=== PATIENT | female | born 1995 | race Caucasian/White ===

== ENCOUNTER 2017-07-08 23:21 | Inpatient (IN) | payer OTHER ==
[2017-07-08 23:56] LABS: URINE HCG POC HCG NEGATIVE (Negative)
[2017-07-09 00:10] LABS: ADD MAN DIFF? NO
[2017-07-09 00:14] LABS: BASO # 0.1 x10^3/uL (0.0-0.2); BASO % 1 % (0-3); EOS # 0.3 x10^3/uL (0.0-0.7); EOS % 2 % (0-3); HEMATOCRIT 41.2 % (36.0-47.0); HEMOGLOBIN 13.6 g/dL (12.0-15.5); LYMPH # 4.6 x10^3/uL (1.0-4.8); LYMPH % 31 % (24-48); MEAN CORPUSCULAR HEMOGLOBIN 26 pg (25-35); MEAN CORPUSCULAR HGB CONC 33 g/dL (31-37); MEAN CORPUSCULAR VOLUME 79 fL (79-100); MONO # 1.2 x10^3/uL (0.0-1.1); MONO % 8 % (0-9); NEUT # 8.4 x10^3uL (1.8-7.7); NEUT % 58 % (31-73); PLATELET COUNT 287 x10^3/uL (140-400); RED BLOOD COUNT 5.22 x10^6/uL (3.50-5.40); RED CELL DISTRIBUTION WIDTH 14.6 % (11.5-14.5); WHITE BLOOD COUNT 14.6 x10^3/uL (4.0-11.0)
[2017-07-09] MEDS: PANTOPRAZOLE IV PUSH 40 MG VIAL. IVP ×2 (00:15)
[2017-07-09] MEDS: IV NORMAL SALINE 1000ML BAG 1,000 ML IV ×6 (00:15→14:29)
[2017-07-09 00:17] LABS: BILIRUBIN,URINE SMALL (NEG); CLARITY,URINE CLOUDY; COLOR,URINE YELLOW; GLUCOSE,URINE NEGATIVE (NEG); NITRITE,URINE NEGATIVE (NEG); PH,URINE 5.5; PROTEIN,URINE NEGATIVE (NEG-TRACE); UROBILINOGEN,URINE 0.2 mg/dL (0.2 mg/dL)
[2017-07-09] MEDS: LIDO:MAALOX:DONNATAL 1:1:1 15 ML SINGLE DOSE SWSW ×2 (00:24)
[2017-07-09] MEDS: ONDANSETRON PF 4 MG/2 ML VIAL. IV ×2 (00:24)
[2017-07-09] MEDS: MORPHINE SULFATE 10 MG/ML VIAL. IV ×2 (00:26)
[2017-07-09 00:28] LABS: ANION GAP 10 (6-14); BLOOD UREA NITROGEN 9 mg/dL (7-20); BUN/CREATININE RATIO 15 (6-20); CALCIUM 9.2 mg/dL (8.5-10.1); CARBON DIOXIDE 26 mmol/L (21-32); CHLORIDE 104 mmol/L (98-107); CREATININE 0.6 mg/dL (0.6-1.0); GFR 128.8; GLUCOSE 91 mg/dL (70-99); POTASSIUM 3.9 mmol/L (3.5-5.1); SODIUM 140 mmol/L (136-145)
[2017-07-09 00:32] LABS: BACTERIA,URINE MODERATE /HPF (0-FEW); RBC,URINE 0 /HPF (0-2); SQUAMOUS EPITHELIAL CELL,UR MANY /LPF
[2017-07-09 00:33] LABS: ALBUMIN 3.7 g/dL (3.4-5.0); ALBUMIN/GLOBULIN RATIO 1.1 (1.0-1.7); ALK PHOS 109 U/L (46-116); ALT (SGPT) 31 U/L (14-59); AST (SGOT) 13 U/L (15-37); LIPASE 90 U/L (73-393); MAGNESIUM 1.9 mg/dL (1.8-2.4); TOTAL BILIRUBIN 0.2 mg/dL (0.2-1.0); TOTAL PROTEIN 7.1 g/dL (6.4-8.2)
[2017-07-09 00:47] LABS: FECAL OB PT POSITIVE (NEG); NEG OBC FOB NEG; POS OBC FOB POS
[2017-07-09] MEDS ORDERED: CONTRAST GIVEN MC ×2 (01:15)
[2017-07-09] MEDS: IOHEXOL 300 MG/ML 100ML VIAL. IV ×2 (01:46)
[2017-07-09] MEDS ORDERED: ONDANSETRON PF 4 MG/2 ML VIAL. IV ×4 (02:45→13:00)
[2017-07-09] MEDS ORDERED: cefTRIAXone SODIUM 2 GM in IV DEXTROSE 5% 100 ML IV (02:45)
[2017-07-09] MEDS: cefTRIAXone IV Push 2 GM VIAL. IVP ×2 (03:21)
[2017-07-09] MEDS: PANTOPRAZOLE 40 MG TABLET.DR. PO ×2 (11:46)
[2017-07-09] MEDS ORDERED: DOCUSATE SODIUM 100 MG CAPSULE. PO ×2 (13:00)
[2017-07-09] MEDS ORDERED: ACETAMINOPHEN 325 MG TABLET. PO ×2 (13:00)
[2017-07-09] MEDS ORDERED: MORPHINE SULFATE 2 MG/ML DISP.SYRIN. IV ×2 (13:00)
[2017-07-09] MEDS ORDERED: hydrALAZINE 20 MG/ML VIAL. IVP ×2 (13:00)
[2017-07-09] MEDS: HEPARIN PF for SUB-Q USE 5,000 UNIT/0.5 ML VIAL. SQ ×2 (14:00)
[2017-07-09] MEDS: PROPRANOLOL ER 80 MG CAP.ER.24H. PO ×2 (14:30)
[2017-07-09] MEDS: NICOTINE 21MG PATCH. TD ×2 (17:08)
[2017-07-09] MEDS: NICOTINE POLACRILEX 2MG GUM PACKAGE of 12. BC ×4 (17:08→20:50)
[2017-07-09] MEDS: metFORMIN 500 MG TABLET PO ×2 (17:08)
[2017-07-09] MEDS: FAMOTIDINE 20 MG TABLET. PO ×2 (20:44)
[2017-07-09] MEDS: LACTOBACILLUS RHAMNOSUS GG 1 CAPSULE. PO ×2 (20:44)
[2017-07-09] MEDS: traZODone 100 MG TABLET. PO ×2 (20:44)
[2017-07-09] MEDS: hydrOXYzine PAMOATE 25 MG CAPSULE PO ×2 (20:44)
[2017-07-09] MEDS: traMADol 50 MG TABLET PO ×2 (20:50)
[2017-07-09] MEDS ORDERED: NON FORMULARY ITEM (Melatonin 10 MG) PO ×2 (21:00)
[2017-07-10] MEDS: IV NORMAL SALINE 1000ML BAG 1,000 ML IV ×2 (03:02)
[2017-07-10 04:22] LABS: ADD MAN DIFF? NO
[2017-07-10 04:36] LABS: BASO # 0.1 x10^3/uL (0.0-0.2); BASO % 1 % (0-3); EOS # 0.3 x10^3/uL (0.0-0.7); EOS % 3 % (0-3); HEMATOCRIT 36.5 % (36.0-47.0); LYMPH # 4.4 x10^3/uL (1.0-4.8); LYMPH % 39 % (24-48); MEAN CORPUSCULAR HEMOGLOBIN 26 pg (25-35); MEAN CORPUSCULAR HGB CONC 33 g/dL (31-37); MEAN CORPUSCULAR VOLUME 79 fL (79-100); MONO # 0.9 x10^3/uL (0.0-1.1); MONO % 8 % (0-9); NEUT # 5.7 x10^3uL (1.8-7.7); NEUT % 50 % (31-73); PLATELET COUNT 245 x10^3/uL (140-400); RED BLOOD COUNT 4.59 x10^6/uL (3.50-5.40); WHITE BLOOD COUNT 11.4 x10^3/uL (4.0-11.0)
[2017-07-10 05:00] LABS: ANION GAP 8 (6-14); BLOOD UREA NITROGEN 8 mg/dL (7-20); CALCIUM 8.8 mg/dL (8.5-10.1); CARBON DIOXIDE 27 mmol/L (21-32); CHLORIDE 106 mmol/L (98-107); CREATININE 0.6 mg/dL (0.6-1.0); GFR 128.8; GLUCOSE 100 mg/dL (70-99); POTASSIUM 3.7 mmol/L (3.5-5.1); SODIUM 141 mmol/L (136-145)
[2017-07-10] MEDS: cefTRIAXone IV Push 2 GM VIAL. IVP ×2 (05:43)
[2017-07-10] MEDS: NICOTINE 21MG PATCH. TD ×2 (08:47)
[2017-07-10] MEDS: metFORMIN 500 MG TABLET PO ×2 (08:48)
[2017-07-10] MEDS: LACTOBACILLUS RHAMNOSUS GG 1 CAPSULE. PO ×2 (08:48)
[2017-07-10] MEDS: PROPRANOLOL ER 80 MG CAP.ER.24H. PO ×2 (08:48)
[2017-07-10] MEDS: PANTOPRAZOLE 40 MG TABLET.DR. PO ×2 (08:48)
== END 2017-07-10 12:10 | disposition home or self-care (01) | DRG 394 ==
LOC: ER 23:21 → 5 NORTH 07-09 02:00
DX: K37 Unspecified appendicitis (principal); N39.0 Urinary tract infection, site not specified; E66.01 Morbid (severe) obesity due to excess calories; N28.1 Cyst of kidney, acquired; E86.0 Dehydration; E11.9 Type 2 diabetes mellitus without complications; D72.829 Elevated white blood cell count, unspecified; Z68.41 Body mass index [BMI] 40.0-44.9, adult; K52.9 Noninfective gastroenteritis and colitis, unspecified; F31.9 Bipolar disorder, unspecified; F17.210 Nicotine dependence, cigarettes, uncomplicated; K38.8 Other specified diseases of appendix; F41.9 Anxiety disorder, unspecified; J45.20 Mild intermittent asthma, uncomplicated; Z82.49 Family history of ischemic heart disease and other diseases of the circulatory system; Z88.6 Allergy status to analgesic agent; Z88.8 Allergy status to other drugs, medicaments and biological substances
CPT/HCPCS: 36415; 74177; 76705; 80048; 80053; 81001; 81025; 82274; 83690; 83735; 85025; 87086; 96361; 96374; 96375; 99285-25; C9113; J0696; J2270; J2405; J3490; J7030; Q0177; Q9967

== ENCOUNTER 2017-10-06 21:48 | Emergency (ER) | payer OTHER | END 2017-10-06 23:23 | disposition home or self-care (01) | LOC: ER 21:48 | DX: S30.0XXA Contusion of lower back and pelvis, initial encounter (principal); S20.221A Contusion of right back wall of thorax, initial encounter; J45.909 Unspecified asthma, uncomplicated; F31.9 Bipolar disorder, unspecified; F12.10 Cannabis abuse, uncomplicated; Z88.1 Allergy status to other antibiotic agents; Z91.041 Radiographic dye allergy status; Z91.040 Latex allergy status; W07.XXXA Fall from chair, initial encounter; Y93.89 Activity, other specified; Y99.8 Other external cause status; Y92.89 Other specified places as the place of occurrence of the external cause | CPT/HCPCS: 72072; 72100; 99284 ==

== ENCOUNTER 2018-01-05 03:18 | Emergency (ER) | payer OTHER ==
[~2018-01-05] VITALS: Ht 175.3 cm; Wt 132.9 kg
[~2018-01-05 03:18] MED LIST: CYCL10TA2 PO; HYDR25TA PO; MELA3TAB2 PO; METF500T5 PO; NAPR-514 PO; NAPR500T8 PO; PROP80CA3 PO; TRAZ300T2 PO
[2018-01-05 03:36] VITALS: BP 133/74
[2018-01-05] MEDS ORDERED: DICL50TA4 PO (04:19)
--- NOTE | 2018-01-05 04:19 | PHYS DOC ---
Past Medical History Past Medical History: Bipolar, Schizophrenia Additional Past Medical Histor: AUTISM, PTSD, OCD, ADHD Past Surgical History: No Surgical History Additional Past Surgical Histo: left hand surgery Additional Information: 1 PPD Alcohol Use: None Drug Use: Marijuana Adult General Chief Complaint Chief Complaint: LOWEREXTREMITY INJURY HPI HPI Patient is a 22-year-old female who presents with complaint of right hip pain. Patient states that she was helping her friend up off the floor and felt her hip dislocate. She states that she then walked to the bed and plopped down and felt her hip go back into joint. She complains of a lot of pain in her hip at this time. Rating it at a 7 out of 10. She states the pain is worsened with weightbearing. She denies any other injuries. Review of Systems Review of Systems Constitutional: Denies fever or chills [] Respiratory: Denies cough or shortness of breath [] Musculoskeletal: Positive right hip pain[] Allergies Allergies Allergies Coded Allergies Type Severity Reaction Last Updated Verified latex Allergy Intermediate Hives 10/06/17 Yes meperidine Allergy Intermediate Hives 09/27/15 Yes red dye Allergy Intermediate 10/06/17 Yes Physical Exam Physical Exam Constitutional: Well developed, well nourished, no acute distress, non-toxic appearance. [] Cardiovascular:Heart rate regular rhythm, no murmur [] Lungs & Thorax: Bilateral breath sounds clear to auscultation [] Extremities: Right hip demonstrates no deformity. Patient does report tenderness to palpation around the greater trochanter region. [] Current Patient Data Vital Signs Vital Signs Date Time Temp Pulse Resp B/P (MAP) Pulse Ox O2 Delivery O2 Flow Rate FiO2 01/05/18 03:36 98.4 116 16 133/74 (93) 93 Room Air 98.4 EKG EKG [] Radiology/Procedures Radiology/Procedures [] Impressions: X-ray of the right hip demonstrates no acute bony abnormalities. Course & Med Decision Making Course & Med Decision Making Pertinent Labs and Imaging studies reviewed. (See chart for details) [] Dragon Disclaimer Dragon Disclaimer This electronic medical record was generated, in whole or in part, using a voice recognition dictation system. Departure Departure Impression: Primary Impression: Sprain of right hip Disposition: HOME, SELF-CARE Condition: STABLE Referrals: UNKNOWN PCP NAME (PCP) Patient Instructions: Hip Injury Additional Instructions: Take prescribed medication as directed and follow-up with your primary care provider in the next few days. Scripts Diclofenac Sodium (DICLOFENAC SODIUM) 50 Mg Tablet. 50 MG PO BID PRN for PAIN, #10 TAB Prov: GLENDY ALCARAZ Jr. DO 01/05/18 Problem Qualifiers Primary Impression: Sprain of right hip Encounter type: initial encounter Qualified Codes: S73.101A - Unspecified sprain of right hip, initial encounter GLENDY ALCARAZ Jr. DO Jan 05, 2018 04:19
[2018-01-05] MEDS ORDERED: IBUPROFEN 600 MG TABLET. PO ONE (04:30)
--- NOTE | 2018-01-05 07:39 | RAD ---
Pelvis with right hip, 3 views, 01/05/2018: HISTORY: After a fall No fracture or dislocation is identified. IMPRESSION: No acute bony abnormality is detected. Electronically signed by: Luis Archuleta MD (01/05/2018 7:35 AM) [facility]
== END 2018-01-05 04:42 | disposition home or self-care (01) ==
LOC: ER 03:18
DX: S73.101A Unspecified sprain of right hip, initial encounter (principal); F31.9 Bipolar disorder, unspecified; F20.9 Schizophrenia, unspecified; F84.0 Autistic disorder; F43.10 Post-traumatic stress disorder, unspecified; F90.9 Attention-deficit hyperactivity disorder, unspecified type; F42.8 Other obsessive-compulsive disorder; F17.200 Nicotine dependence, unspecified, uncomplicated; Z88.8 Allergy status to other drugs, medicaments and biological substances; Z91.041 Radiographic dye allergy status; Z91.040 Latex allergy status; X50.9XXA Other and unspecified overexertion or strenuous movements or postures, initial encounter; Y93.01 Activity, walking, marching and hiking; Y99.8 Other external cause status; Y92.89 Other specified places as the place of occurrence of the external cause
CPT/HCPCS: 73502; 99284

== ENCOUNTER 2018-02-15 12:29 | Emergency (ER) | payer OTHER ==
[~2018-02-15] VITALS: Ht 175.3 cm; Wt 131.5 kg
[~2018-02-15 12:29] MED LIST changes: +DICL50TA4 PO; +METF500T16 PO; -METF500T5 PO
[2018-02-15] MEDS ORDERED: ONDANSETRON PF 4 MG/2 ML VIAL. IV ONE (13:15)
[2018-02-15] MEDS ORDERED: IPRATRPIUM/ALBUTEROL 0.5/2.5MG 3 ML NEBU. NEB ONE (13:15)
[2018-02-15] MEDS ORDERED: IV NORMAL SALINE 1000ML BAG 1,000 ML IV ONE (13:15)
--- NOTE | 2018-02-15 14:10 | RAD ---
EXAM: Head CT without contrast. HISTORY: Dizziness. Memory loss. TECHNIQUE: Computed tomographic images of the head were obtained without contrast. *One or more of the following individualized dose reduction techniques were utilized for this examination: 1. Automated exposure control. 2. Adjustment of the mA and/or kV according to patient size. 3. Use of iterative reconstruction technique. COMPARISON: None. FINDINGS: There is no acute or subacute extra-axial or intraparenchymal hemorrhage. There is no mass effect or midline shift. There is no hydrocephalus. The lee-white matter differentiation pattern is intact. There is near complete opacification of the left maxillary sinus. There is moderate right maxillary and ethmoid and left sphenoid sinus and mild left ethmoid and right frontal sinus mucosal thickening. There is a right maxillary mucous retention cyst. The mastoid air cells are clear. The orbits are unremarkable. No suspicious calvarial lesion is seen. IMPRESSION: 1. No acute intracranial finding. 2. Paranasal sinus disease. Electronically signed by: Rae Manuel MD (02/15/2018 2:07 PM) [place] [id number]
[2018-02-15] MEDS ORDERED: MECLIZINE HCL 12.5 MG TABLET. PO ONE (14:15)
[2018-02-15 14:17] LABS: BASO # 0.1 x10^3/uL (0.0-0.2); BASO % 1 % (0-3); EOS # 0.2 x10^3/uL (0.0-0.7); EOS % 2 % (0-3); HEMATOCRIT 42.4 % (36.0-47.0); HEMOGLOBIN 14.2 g/dL (12.0-15.5); LYMPH # 3.7 x10^3/uL (1.0-4.8); LYMPH % 36 % (24-48); MEAN CORPUSCULAR HEMOGLOBIN 27 pg (25-35); MEAN CORPUSCULAR HGB CONC 33 g/dL (31-37); MEAN CORPUSCULAR VOLUME 79 fL (79-100); MONO # 0.7 x10^3/uL (0.0-1.1); MONO % 7 % (0-9); NEUT # 5.5 x10^3uL (1.8-7.7); NEUT % 54 % (31-73); PLATELET COUNT 263 x10^3/uL (140-400); RED BLOOD COUNT 5.35 x10^6/uL (3.50-5.40); RED CELL DISTRIBUTION WIDTH 14.7 % (11.5-14.5); WHITE BLOOD COUNT 10.1 x10^3/uL (4.0-11.0)
--- NOTE | 2018-02-15 14:18 | PHYS DOC ---
Past Medical History Past Medical History: Anxiety, Bipolar, Schizophrenia Additional Past Medical Histor: AUTISM, PTSD, OCD, ADHD Past Surgical History: No Surgical History Additional Past Surgical Histo: left hand surgery Alcohol Use: None Drug Use: Marijuana Adult General Chief Complaint Chief Complaint: DIZZY/LIGHT HEADED HPI HPI Patient is a 22 year old female with history of bipolar, schizophrenia, anxiety , who presents today complaining of constant dizziness and a cough for 3 weeks. Patient denies any headache. She states she's also had episodes of vomiting for the last 3 weeks. She states the episodes of vomiting are occurring whether she is coughing or not. Patient denies any abdominal pain. Denies any diarrhea. She states she is having trouble remembering things. Patient states she has seen her PCP with the same symptoms but they didn't do much for her. She also states she is a smoker. Review of Systems Review of Systems Constitutional: Denies fever or chills [] Eyes: Denies change in visual acuity, redness, or eye pain [] HENT: Denies nasal congestion or sore throat [] Respiratory: Reports cough, denies shortness of breath [] Cardiovascular: No additional information not addressed in HPI [] GI: Reports vomiting. Denies abdominal pain, nausea, bloody stools or diarrhea [ ] : Denies dysuria or hematuria [] Musculoskeletal: Denies back pain or joint pain [] Integument: Denies rash or skin lesions [] Neurologic: Reports dizziness. Denies headache, focal weakness or sensory changes [] All other systems were reviewed and found to be within normal limits, except as documented in this note. Current Medications Current Medications Current Medications Medications (Trade) Dose Ordered Sig/Terrance Start Time Stop Time Status Last Admin Dose Admin Albuterol/ Ipratropium (Duoneb) 3 ml 1X ONCE 02/15/18 13:15 02/15/18 13:17 DC 02/15/18 13:30 3 ML Meclizine HCl (Antivert) 25 mg 1X ONCE 02/15/18 14:15 02/15/18 14:16 DC 02/15/18 14:15 25 MG Ondansetron HCl (Zofran) 4 mg 1X ONCE 02/15/18 13:15 02/15/18 13:17 DC 02/15/18 13:15 4 MG Sodium Chloride 1,000 ml @ 1,000 mls/hr 1X ONCE 02/15/18 13:15 02/15/18 14:14 DC 02/15/18 13:15 1,000 MLS/HR Allergies Allergies Allergies Coded Allergies Type Severity Reaction Last Updated Verified latex Allergy Intermediate Hives 10/06/17 Yes meperidine Allergy Intermediate Hives 09/27/15 Yes red dye Allergy Intermediate 10/06/17 Yes Physical Exam Physical Exam Constitutional: Well developed, well nourished, no acute distress, non-toxic appearance. [] HENT: Normocephalic, atraumatic, bilateral external ears normal, oropharynx moist, no oral exudates, nose normal. [] Eyes: PERRLA, EOMI, conjunctiva normal, no discharge. [] Neck: Normal range of motion, no tenderness, supple, no stridor. [] Cardiovascular:Heart rate regular rhythm, no murmur [] Lungs & Thorax: Bilateral breath sounds clear to auscultation [] Abdomen: Bowel sounds normal, soft, no tenderness, no masses, no pulsatile masses. [] Skin: Warm, dry, no erythema, no rash. [] Back: No tenderness, no CVA tenderness. [] Extremities: No tenderness, no cyanosis, no clubbing, ROM intact, no edema. [] Neurologic: Alert and oriented X 3, normal motor function, normal sensory function, no focal deficits noted. Cranial nerves II through XII intact. Psychologic: Flat affect, depressed mood Current Patient Data Vital Signs Vital Signs Date Time Temp Pulse Resp B/P (MAP) Pulse Ox O2 Delivery O2 Flow Rate FiO2 02/15/18 13:30 95 Room Air 02/15/18 13:08 99.0 107 16 139/82 (101) 99.0 Lab Values Laboratory Tests Test 02/15/18 13:50 02/15/18 14:42 02/15/18 14:49 White Blood Count 10.1 x10^3/uL (4.0-11.0) Red Blood Count 5.35 x10^6/uL (3.50-5.40) Hemoglobin 14.2 g/dL (12.0-15.5) Hematocrit 42.4 % (36.0-47.0) Mean Corpuscular Volume 79 fL (79-100) Mean Corpuscular Hemoglobin 27 pg (25-35) Mean Corpuscular Hemoglobin Concent 33 g/dL (31-37) Red Cell Distribution Width 14.7 % (11.5-14.5) H Platelet Count 263 x10^3/uL (140-400) Neutrophils (%) (Auto) 54 % (31-73) Lymphocytes (%) (Auto) 36 % (24-48) Monocytes (%) (Auto) 7 % (0-9) Eosinophils (%) (Auto) 2 % (0-3) Basophils (%) (Auto) 1 % (0-3) Neutrophils # (Auto) 5.5 x10^3uL (1.8-7.7) Lymphocytes # (Auto) 3.7 x10^3/uL (1.0-4.8) Monocytes # (Auto) 0.7 x10^3/uL (0.0-1.1) Eosinophils # (Auto) 0.2 x10^3/uL (0.0-0.7) Basophils # (Auto) 0.1 x10^3/uL (0.0-0.2) Sodium Level 144 mmol/L (136-145) Potassium Level 3.6 mmol/L (3.5-5.1) Chloride Level 108 mmol/L (98-107) H Carbon Dioxide Level 25 mmol/L (21-32) Anion Gap 11 (6-14) Blood Urea Nitrogen 5 mg/dL (7-20) L Creatinine 0.7 mg/dL (0.6-1.0) Estimated GFR (Cockcroft-Gault) 106.7 BUN/Creatinine Ratio 7 (6-20) Glucose Level 105 mg/dL (70-99) H Calcium Level 9.5 mg/dL (8.5-10.1) Magnesium Level 2.1 mg/dL (1.8-2.4) Total Bilirubin 0.2 mg/dL (0.2-1.0) Aspartate Amino Transferase (AST) 14 U/L (15-37) L Alanine Aminotransferase (ALT) 30 U/L (14-59) Alkaline Phosphatase 101 U/L (46-116) Troponin I Quantitative < 0.017 ng/mL (0.000-0.055) NV-Txk-C-Type Natriuretic Peptide 105 pg/mL (0-124) Total Protein 7.9 g/dL (6.4-8.2) Albumin 3.7 g/dL (3.4-5.0) Albumin/Globulin Ratio 0.9 (1.0-1.7) L Lipase 80 U/L (73-393) Thyroid Stimulating Hormone (TSH) 0.788 uIU/mL (0.358-3.74) Urine Collection Type Unknown Urine Color Yellow Urine Clarity Clear Urine pH 5.5 Urine Specific [place] 1.025 Urine Protein Negative mg/dL (NEG-TRACE) Urine Glucose (UA) Negative mg/dL (NEG) Urine Ketones (Stick) Negative mg/dL (NEG) Urine Blood Negative (NEG) Urine Nitrite Negative (NEG) Urine Bilirubin Small (NEG) Urine Urobilinogen Dipstick 1.0 mg/dL (0.2 mg/dL) Urine Leukocyte Esterase Moderate (NEG) Urine RBC 0 /HPF (0-2) Urine WBC 11-20 /HPF (0-4) Urine Squamous Epithelial Cells Many /LPF Urine Bacteria Moderate /HPF (0-FEW) Urine Mucus Marked /LPF Urine Opiates Screen Neg (NEG) Urine Methadone Screen Neg (NEG) Urine Barbiturates Neg (NEG) Urine Phencyclidine Screen Neg (NEG) Urine Amphetamine/Methamphetamine Neg (NEG) Urine Benzodiazepines Screen Neg (NEG) Urine Cocaine Screen Neg (NEG) Urine Cannabinoids Screen Pos (NEG) Urine Ethyl Alcohol Neg (NEG) POC Urine HCG, Qualitative Hcg negative (Negative) Laboratory Tests 02/15/18 13:50 Laboratory Tests 02/15/18 13:50 EKG EKG 13:[address] Celestin sinus rhythm HR 92 no STEMI[] Radiology/Procedures Radiology/Procedures [] Course & Med Decision Making Course & Med Decision Making Pertinent Labs and Imaging studies reviewed. (See chart for details) This is a 22-year-old female patient with history of depression and anxiety and schizophrenia presenting to the ED today complaining of dizziness, cough and vomiting for 3 weeks. CBC CMP lipase with no acute findings. Urine analysis is noted for UTI, CT of the head was noted for sinusitis. Acute abdominal series was negative for any acute findings. Patient was discharged with Clindamycin she is allergic to red dye which is an ingredient in Augmentin. Instructed to continue using her breathing treatments at home as needed. Patient has history of smoking. Patient was encouraged to consider smoking cessation. Follow-up with the PCP in 1-2 weeks. Dragon Disclaimer Dragon Disclaimer This electronic medical record was generated, in whole or in part, using a voice recognition dictation system. Departure Departure Impression: Primary Impression: Smoking addiction Additional Impressions: Acute sinusitis Urinary tract infection Disposition: 01 HOME, SELF-CARE Condition: STABLE Referrals: UNKNOWN PCP NAME (PCP) Follow-up with your doctor in 1-2 weeks Patient Instructions: Sinusitis, Beof-bu-Oftt, Smoking Cessation, Urinary Tract Infection Additional Instructions: You were evaluated in the emergency room and noted to have urinary tract infection as well as a sinus infection. Use the prescribed medications as ordered. Consider smoking cessation. Follow-up with your doctor in 1-2 weeks. Scripts Clindamycin Hcl (CLINDAMYCIN HCL) 300 Mg Capsule 1 CAP PO TID, #21 CAP Prov: ASHWIN BLUNT APRN 02/15/18 Benzonatate (TESSALON PERLE) 100 Mg Capsule 1 CAP PO TID, #30 CAP Prov: ASHWIN BLUNT APRN 02/15/18 Albuterol Sulfate (Proair Respiclick) 90 Mcg Aer.pow.ba 1 PUFF IH PRN Q6HRS PRN for SHORTNESS OF BREATH, #1 INHALER Prov: ASHWIN BLUNT APRN 02/15/18 Problem Qualifiers Additional Impressions: Acute sinusitis Sinusitis location: maxillary Recurrence: not specified as recurrent Qualified Codes: J01.00 - Acute maxillary sinusitis, unspecified Urinary tract infection Urinary tract infection type: site unspecified Hematuria presence: without hematuria Qualified Codes: N39.0 - Urinary tract infection, site not specified ASHWIN BLUNT APRN Feb 15, 2018 14:18
[2018-02-15 14:19] LABS: CALCIUM 9.5 mg/dL (8.5-10.1); CREATININE 0.7 mg/dL (0.6-1.0); GFR 106.7; POTASSIUM 3.6 mmol/L (3.5-5.1)
--- NOTE | 2018-02-15 14:19 | EKG ---
[address] [place] [address] Test Date: 2018-02-15 Test Time: 13:45:00 Pat Name: CHICHO DUFFY Department: Room: Gender: Female [place]: WING : 1995 Requested By: ASHWIN BLUNT Order Number: [id number] Reading MD: Robert Khan Measurements Intervals [place] Rate: 92 P: 33 WV: 146 QRS: 0 QRSD: 92 T: 36 QT: 340 QTc: 425 Interpretive Statements SINUS RHYTHM LEFTWARD AXIS OTHERWISE NORMAL ECG No previous ECG available for comparison Electronically Signed On 02-19-2018 10:48:55 CDT by Robert Khan
[2018-02-15 14:23] LABS: ALBUMIN 3.7 g/dL (3.4-5.0); ALBUMIN/GLOBULIN RATIO 0.9 (1.0-1.7); MAGNESIUM 2.1 mg/dL (1.8-2.4); TOTAL BILIRUBIN 0.2 mg/dL (0.2-1.0); TOTAL PROTEIN 7.9 g/dL (6.4-8.2)
[2018-02-15 14:44] VITALS: BP 140/81
[2018-02-15 14:57] LABS: BILIRUBIN,URINE SMALL (NEG); CLARITY,URINE CLEAR; COLOR,URINE YELLOW; NITRITE,URINE NEGATIVE (NEG); PH,URINE 5.5; PROTEIN,URINE NEGATIVE (NEG-TRACE)
[2018-02-15 15:04] LABS: AMPHETAMINE/METHAMPHETAMINE NEG (NEG); BARBITURATES NEG (NEG); BENZODIAZEPINES NEG (NEG); CANNABINOIDS POS (NEG); COCAINE NEG (NEG); METHADONE NEG (NEG); OPIATES NEG (NEG); PHENCYCLIDINE NEG (NEG)
[2018-02-15 15:14] LABS: BACTERIA,URINE MODERATE /HPF (0-FEW); RBC,URINE 0 /HPF (0-2); SQUAMOUS EPITHELIAL CELL,UR MANY /LPF
--- NOTE | 2018-02-15 15:23 | RAD ---
EXAM: Abdomen acute complete. HISTORY: Pain. COMPARISON: None. FINDINGS: A frontal view of the chest and frontal upright and supine views of the abdomen are obtained. There is no infiltrate, pleural effusion or pneumothorax. The heart is normal in size. No abnormally dilated air-filled loop of bowel seen. There is no free air. IMPRESSION: 1. No acute pulmonary finding. 2. Nonobstructive bowel gas pattern. Electronically signed by: Rae Manuel MD (02/15/2018 3:19 PM) [place] [id number]
[2018-02-15] MEDS ORDERED: PROAIR RESPICL90 MCG IH (15:31)
[2018-02-15] MEDS ORDERED: BENZ100C PO (15:31)
[2018-02-15] MEDS ORDERED: CLIN300C8 PO (15:31)
== END 2018-02-15 15:50 | disposition home or self-care (01) ==
LOC: ER 12:29
DX: J01.00 Acute maxillary sinusitis, unspecified (principal); N39.0 Urinary tract infection, site not specified; R42 Dizziness and giddiness; F31.9 Bipolar disorder, unspecified; F41.9 Anxiety disorder, unspecified; F20.9 Schizophrenia, unspecified; F84.0 Autistic disorder; F43.10 Post-traumatic stress disorder, unspecified; F42.8 Other obsessive-compulsive disorder; F90.9 Attention-deficit hyperactivity disorder, unspecified type; F17.200 Nicotine dependence, unspecified, uncomplicated; Z88.8 Allergy status to other drugs, medicaments and biological substances; Z91.041 Radiographic dye allergy status; Z91.040 Latex allergy status
CPT/HCPCS: 36415; 70450; 74022; 80053; 80307; 81001; 81025; 83690; 83735; 83880; 84443; 84484; 85025; 87086; 93005; 94640; 96361; 96374; 99285; J2405; J7030; J7620; J8597; G0479